=== PATIENT | female | born 1945 | race Hispanic/Latino ===

== ENCOUNTER 2023-08-26 07:34 | Inpatient (IN) | payer SELFPAY ==
[2023-08-26] MEDS ORDERED: NA CHLORIDE 0.9% 1,000 ML ONE ×2 (07:50→14:16)
[2023-08-26 08:10] LABS: Specific Gravity 1.007 (1.005-1.030); Sqamous Epithelial <5 /HPF (None Seen); Urine Bacteria 20-50 /HPF (<20); Urine Bilirubin NEGATIVE (Negative); Urine Blood 1+ (Negative); Urine Clarity Extremely Turbid (Clear); Urine Color Light-Yellow (Yellow); Urine Culture Reflex Order REFLEXED; Urine Glucose 4+ (Over) (Negative); Urine Ketones NEGATIVE (Negative); Urine Microscopic Reflex YN ORDER UMIC; Urine Nitrite NEGATIVE (Negative); Urine Protein TRACE (Negative); Urine Urobilinogen Normal (Normal); Urine WBC >50 /HPF (<5); Urine WBC Clump Few /HPF (None Seen)
[2023-08-26 08:19] LABS: Absolute Eosinophils 0.1 K/uL (0-0.5); Absolute Lymphocytes (CBC) 1.4 K/uL (0.7-4.9); Absolute Monocytes 1.2 K/uL (0.1-1.3); Absolute Neutrophil 12.5 K/uL (1.8-8.0); Basophils % 0.2 % (0-1.3); Eosinophils % 0.9 % (0-4.4); Hematocrit 31.9 % (36.0-45.0); Hemoglobin 10.4 g/dL (12.0-15.0); Lymphocytes % 8.9 % (15.3-44.8); MCH 29.6 pg (27.0-35.0); MCHC 32.5 g/dL (32.0-36.0); MCV 91.2 fL (80-100); MPV 9.6 fL (7.6-11.3); Monocytes % 7.6 % (3.3-12.3); Neutrophils % 82.4 % (41.7-73.7); Platelets 321 thou/uL (152-406)
[2023-08-26 08:35] LABS: Anion Gap 5.3 mEq/L (5.0-15.0); BUN Blood Urea Nitrogen 13 mg/dL (7-18); Bicarbonate 30 mEq/L (21-32); Glomerular Filtration Rate 59 ml/min (=/>90); Glucose Level 377 mg/dL (74-106); Potassium 4.3 mEq/L (3.5-5.1); Sodium Level 130 mEq/L (136-145)
[2023-08-26 08:36] LABS: Troponin High Sensitivity < 3.0 pg/mL (<58.9)
--- NOTE | 2023-08-26 08:46 | RAD REPORT ---
EXAM DESCRIPTION: CT - Head Brain Wo Cont - 08/26/2023 8:09 am CLINICAL HISTORY: Dizziness COMPARISON: none TECHNIQUE: Computed axial tomography of the head was obtained. IV contrast was not requested. All CT scans are performed using dose optimization technique as appropriate and may include automated exposure control or mA/KV adjustment according to patient size. FINDINGS: An intracranial bleed is not seen The ventricles are normal in caliber No significant hypodense areas within the brain visualized No extra-axial fluid collection is noted. Fluid within the sinuses/ mastoids is not seen IMPRESSION: No acute intracranial abnormality is seen If patient's symptoms persist MRI of the brain would be recommended
--- NOTE | 2023-08-26 08:51 | RAD REPORT ---
EXAM DESCRIPTION: RAD - Shoulder Left 2 View - 08/26/2023 8:23 am CLINICAL HISTORY: Left shoulder pain status post fall FINDINGS: No fracture or dislocation is seen. Marked osteoarthritis AC joint. Osteoporosis
[2023-08-26] MEDS ORDERED: INSULIN REGULAR (HUMAN) 100 UNIT/ML ONE (08:57)
[2023-08-26] MEDS ORDERED: CEFTRIAXONE 1000 MG/VIAL ONE (08:57)
--- NOTE | 2023-08-26 09:00 | RAD REPORT ---
EXAM DESCRIPTION: CT - Abdomen Pelvis W Contrast - 08/26/2023 8:15 am CLINICAL HISTORY: Abdominal pain COMPARISON: none. TECHNIQUE: Computed axial tomography of the abdomen pelvis was obtained. 100 cc Isovue-300 was admin istered intravenously. Oral contrast was not requested which limits evaluation of bowel and appendix All CT scans are performed using dose optimization technique as appropriate and may include automated exposure control or mA/KV adjustment according to patient size. FINDINGS: The liver, spleen, pancreas, adrenal and left kidney appear unremarkable. Small right arias l cyst. There is no evidence of diverticulitis. An abnormal appendix is not seen. No adnexal mass. Bladder wall thickening IMPRESSION: Bladder wall thickening may indicate cystitis
--- NOTE | 2023-08-26 09:01 | RAD REPORT ---
EXAM DESCRIPTION: Arturo Single View08/26/2023 8:22 am CLINICAL HISTORY: Chest pain COMPARISON: none FINDINGS: The lungs appear clear of acute infiltrate. The heart is mildly enlarged IMPRESSION: No acute abnormalities displayed
--- NOTE | 2023-08-26 09:10 | ER ---
Nurse's Notes [facility] Name: Gloria Machuca Age: 77 yrs Sex: Female : 1945 Arrival Date: 08/26/2023 Time: 07:34 Bed 17 Private MD: Diagnosis: UTI/ Urinary tract infection, site not specified;Hyperglycemia, unspecified;Muscle weakness (generalized) Presentation: 08/25 07:39 Chief complaint: Patient states: feeling weak and dizzy since yesterday , thinks her iw sugar is high, takes metformin , feels nausea and has a headache, son states she fell two weeks ago. Coronavirus screen: At this time, the client does not indicate any symptoms associated with coronavirus-19. Ebola Screen: Patient negative for fever greater than or equal to 101.5 degrees Fahrenheit, and additional compatible Ebola Virus Disease symptoms Patient denies exposure to infectious person. Patient denies travel to an Ebola-affected area in the 21 days before illness onset. No symptoms or risks identified at this time. 07:39 Method Of Arrival: Wheelchair iw 07:39 Acuity: DON 3 iw 07:40 Initial Sepsis Screen: Does the patient meet any 2 criteria? No. Patient's initial rs5 sepsis screen is negative. Does the patient have a suspected source of infection? No. Patient's initial sepsis screen is negative. Risk Assessment: Do you want to hurt yourself or someone else? Patient reports no desire to harm self or others. Onset of symptoms was August 26, 2023. Historical: - Allergies: 07:42 No Known Allergies; iw - PMHx: 07:42 Hypercholesterolemia; Diabetes mellitus; iw - PSHx: 07:42 tubal ligation; iw - Immunization history:: Adult Immunizations up to date. - Infectious Disease History:: Denies. - Social history:: Smoking status: Patient denies any tobacco usage or history of. - Family history:: not pertinent. - Hospitalizations: : No recent hospitalization is reported. Screenin:46 [facility] ED Fall Risk Assessment (Adult) History of falling in the last 3 months, rs5 including since admission No falls in past 3 months (0 pts) Confusion or Disorientation No (0 pts) Intoxicated or Sedated No (0 pts) Impaired Gait No (0 pts) Mobility Assist Device Used No (0 pt) Altered Elimination No (0 pt) Score/Fall Risk Level 0 - 2 = Low Risk Oriented to surroundings, Maintained a safe environment. Abuse screen: Denies threats or abuse. Nutritional screening: No deficits noted. Tuberculosis screening: No symptoms or risk factors identified. Assessment: 07:46 General: Appears in no apparent distress. uncomfortable, Behavior is calm, cooperative. rs5 Pain: Denies pain. Neuro: Level of Consciousness is awake, alert, obeys commands, Oriented to person, place, time, situation, Reports dizziness. Cardiovascular: Patient's skin is warm and dry. Rhythm is regular. Respiratory: Airway is patent Respiratory effort is even, unlabored, Respiratory pattern is regular, symmetrical. GI: Abdomen is flat, non-distended, Abd is soft and non tender X 4 quads. : No signs and/or symptoms were reported regarding the genitourinary system. EENT: No signs and/or symptoms were reported regarding the EENT system. Derm: Skin is intact, Skin is dry, Skin is normal, Skin temperature is warm. Musculoskeletal: Range of motion: intact in all extremities. 09:01 Reassessment: Patient and/or family updated on plan of care and expected duration. Pain rs5 level reassessed. Patient is alert, oriented x 3, equal unlabored respirations, skin warm/dry/pink. Patient denies pain at this time. Patient states feeling better. Patient states symptoms have improved. Neuro: Denies dizziness. 10:15 Reassessment: No changes from previously documented assessment. rs5 11:35 Reassessment: Patient and/or family updated on plan of care and expected duration. Pain rs5 level reassessed. Patient is alert, oriented x 3, equal unlabored respirations, skin warm/dry/pink. Vital Signs: 07:39 BP 153 / 65; Pulse 72; Resp 16; Temp 97.6; Pulse Ox 97% on R/A; iw 11:15 BP 150 / 67; Pulse 77; Resp 18; Temp 97.7(O); Pulse Ox 99% on R/A; rs5 ED Course: 07:36 Patient arrived in ED. rg4 07:37 Prince Rushing MD is Attending Physician. rn 07:42 Triage completed. iw 07:46 Patient has correct armband on for positive identification. Placed in gown. Bed in low rs5 position. Call light in reach. Side rails up X2. 07:46 No provider procedures requiring assistance completed. rs5 07:48 Karlos Anna, RN is Primary Nurse. rs5 07:50 Inserted saline lock: 22 gauge in right antecubital area, using aseptic technique. rs5 Blood collected. 08:11 CT Head Brain wo Cont In Process Unspecified. EDMS 08:17 CT Abd/Pelvis - IV Contrast Only In Process Unspecified. EDMS 08:24 Chest Single View XRAY In Process Unspecified. EDMS 08:24 XRAY Shoulder LEFT 2 view In Process Unspecified. EDMS 09:09 Ashvin Mayorga MD is Hospitalizing Provider. rn 11:30 Patient admitted, IV remains in place. rs5 Administered Medications: 08:00 Drug: NS 0.9% IV 1000 ml IV at 1000 ml once Route: IV; Rate: 1000 ml; Site: right rs5 antecubital; 08:15 Follow up: Response: No adverse reaction rs5 09:00 Follow up: IV Status: Completed infusion rs5 08:55 Drug: Insulin Regular Human Sub-Q 5 units Sub-Q once {Co-Signature: bp (Ted Dong RN).} Route: Sub-Q; Site: left lower abdomen; 09:01 Follow up: Response: No adverse reaction rs5 09:00 Drug: Rocephin IV 1 grams IV at calculated rate once; Given slow IV push per pharmacy rs5 instructions Route: IV; Rate: calculated rate; Site: left antecubital; 09:15 Follow up: Response: No adverse reaction rs5 Medication: 08:23 VIS not applicable for this client. rs5 Outcome: 09:09 Decision to Hospitalize by Provider. rn 11:30 Admitted to ER Hold. Please see [facility] for further documentation. rs5 11:30 Condition: stable 11:30 Instructed on the need for admit, Demonstrated understanding of instructions, 17:31 Patient left the ED. bd Signatures: Dispatcher [employer] EDMS Bertha Link Irene RN Prince Lovell MD MD rn Garcia, Rubi rg4 Karlos Anna RN RN rs5 Peltier, Brian RN bp Corrections: (The following items were deleted from the chart) 16:34 09:01 Response: No adverse reaction rs5 rs5
--- NOTE | 2023-08-26 09:10 | EDPHYS ---
Physician Documentation [facility] Name: Gloria Machuca Age: 77 yrs Sex: Female : 1945 Arrival Date: 08/26/2023 Time: 07:34 Bed 17 Private MD: ED Physician Prince Rushing HPI: 08/25 07:50 This 77 yrs old Female presents to ER via Wheelchair with complaints of High Blood rn Sugar. 07:50 The patient or guardian reports hyperglycemia. Onset: The symptoms/episode rn began/occurred 5 day(s) ago. Associated signs and symptoms: Pertinent positives: polydipsia, polyuria. Current symptoms: In the emergency department the patient's symptoms are unchanged from the initial presentation. The patient has experienced similar episodes in the past. The patient has been recently seen by a physician:. Family reports patient not feeling well since last week, took her to her PCP last and glucose was in the 400s. Since then has been urinating a lot, dizziness, lightheadedness and malaise. No fever. Fell due to lightheadedness last week injuring left shoulder and head. Has not obtained imaging for the fall. Denies chest pain. No shortness of breath.. Historical: - Allergies: 07:42 No Known Allergies; iw - PMHx: 07:42 Hypercholesterolemia; Diabetes mellitus; iw - PSHx: 07:42 tubal ligation; iw - Immunization history:: Adult Immunizations up to date. - Infectious Disease History:: Denies. - Social history:: Smoking status: Patient denies any tobacco usage or history of. - Family history:: not pertinent. - Hospitalizations: : No recent hospitalization is reported. ROS: 07:52 Constitutional: Negative for fever, chills, and weight loss, Eyes: Negative for injury, rn pain, redness, and discharge, Neck: Negative for injury, pain, and swelling, Cardiovascular: Negative for chest pain, palpitations, and edema, Respiratory: Negative for shortness of breath, cough, wheezing, and pleuritic chest pain, Abdomen/GI: Positive for abdominal cramping and nausea Back: Negative for injury and pain, MS/Extremity: Positive for left shoulder pain Skin: Negative for injury, rash, and discoloration, Neuro: Positive for mild headache and generalized weakness Exam: 07:52 Constitutional: This is a well developed, well nourished patient who is awake, alert, rn and in no acute distress. Head/Face: Normocephalic, healing ecchymosis right periorbital region Eyes: Pupils equal round and reactive to light, extra-ocular motions intact. Neck: No midline cervical tenderness Chest/axilla: Normal chest wall appearance and motion. Nontender with no deformity. No crepitus Cardiovascular: Regular rate and rhythm. No pulse deficits. Respiratory: No increased work of breathing, no retractions or nasal flaring. Abdomen/GI: Soft, non-tender Back: No spinal tenderness. MS/ Extremity: Mild painful range of motion left shoulder without gross deformity. Neuro: Awake and alert, GCS 15, oriented to person, place, time, and situation. Cranial nerves II-XII grossly intact. Motor strength 4/5 in all extremities. Sensory grossly intact. 10:27 ECG was reviewed by the Attending Physician. rn Vital Signs: 07:39 BP 153 / 65; Pulse 72; Resp 16; Temp 97.6; Pulse Ox 97% on R/A; iw 11:15 BP 150 / 67; Pulse 77; Resp 18; Temp 97.7(O); Pulse Ox 99% on R/A; rs5 MDM: 07:37 Patient medically screened. rn 09:08 Differential diagnosis: DKA, hyperglycemia, Urinary tract infection, dehydration, near rn syncope. Data reviewed: vital signs, nurses notes, lab test result(s), EKG, radiologic studies, CT scan, plain films, and as a result, I will admit patient. Consideration of Admission/Observation Patient was admitted/placed on observation. Escalation of care including admission/observation considered. Counseling: I had a detailed discussion with the patient and/or guardian regarding the historical points, exam findings, and any diagnostic results supporting the discharge/admit diagnosis, lab results, radiology results, the need for further work-up and treatment in the hospital. ED course: Patient with urinary tract infection, hyperglycemia, no acidosis or elevated anion gap. Blood cultures and lactate ordered. Will admit with IV antibiotics and further care.. 08/25 07:48 Order name: Basic Metabolic Panel; Complete Time: 08:36 rn 08/25 07:48 Order name: CBC with Diff rn 08/25 07:48 Order name: Troponin High Sensitivity; Complete Time: 08:36 rn 08/25 07:48 Order name: Urinalysis w/ reflexes; Complete Time: 08:36 rn 08/25 08:07 Order name: Glucose, Ancillary Testing; Complete Time: 08:36 EDMS 08/25 08:13 Order name: Urine Culture EDMS 08/25 08:33 Order name: CREATININE WHOLE BLOOD; Complete Time: 08:36 EDMS 08/25 08:36 Order name: Blood Culture Adult (2) rn 08/25 08:36 Order name: Lactate w/ 2H reflex if indic. rn 08/25 08:36 Order name: Protime (+inr) rn 08/25 08:36 Order name: Ptt, Activated rn 08/25 09:27 Order name: Manual Differential EDMS 08/25 12:28 Order name: Glucose, Ancillary Testing EDIN 08/25 12:52 Order name: Hemoglobin A1c EDIN 08/25 07:48 Order name: CT Head Brain wo Cont; Complete Time: 09:07 rn 08/25 07:48 Order name: Chest Single View XRAY; Complete Time: 09:07 rn 08/25 07:48 Order name: XRAY Shoulder LEFT 2 view; Complete Time: 09:07 rn 08/25 07:52 Order name: CT Abd/Pelvis - IV Contrast Only; Complete Time: 09:07 rn 08/25 07:48 Order name: EKG; Complete Time: 07:49 rn 08/25 07:48 Order name: Cardiac monitoring; Complete Time: 08:16 rn 08/25 07:48 Order name: EKG - Nurse/Tech; Complete Time: 08:35 rn 08/25 07:48 Order name: IV Saline Lock; Complete Time: 08:35 rn 08/25 07:48 Order name: Labs collected and sent; Complete Time: 08:35 rn 08/25 07:48 Order name: O2 Per Protocol; Complete Time: 08:35 rn 08/25 07:48 Order name: O2 Sat Monitoring; Complete Time: 08:35 rn 08/25 07:48 Order name: Glucose Level; Complete Time: 08:34 rn EC:27 Rate is 65 beats/min. Rhythm is regular. QRS [place] is Normal. [place] interval is normal. QRS rn interval is normal. QT interval is normal. No Q waves. T waves are Normal. No ST changes noted. Clinical impression: Normal ECG. Interpreted by me. Reviewed by me. Administered Medications: 08:00 Drug: NS 0.9% IV 1000 ml IV at 1000 ml once Route: IV; Rate: 1000 ml; Site: right rs5 antecubital; 08:15 Follow up: Response: No adverse reaction rs5 09:00 Follow up: IV Status: Completed infusion rs5 08:55 Drug: Insulin Regular Human Sub-Q 5 units Sub-Q once {Co-Signature: bp (Ted Dong rs5 RN).} Route: Sub-Q; Site: left lower abdomen; 09:01 Follow up: Response: No adverse reaction rs5 09:00 Drug: Rocephin IV 1 grams IV at calculated rate once; Given slow IV push per pharmacy rs5 instructions Route: IV; Rate: calculated rate; Site: left antecubital; 09:15 Follow up: Response: No adverse reaction rs5 Disposition Summary: 08/26/23 09:09 Hospitalization Ordered Notes: Hospitalization Status: Inpatient Admission rn Provider: Ashvin Mayorga rn Condition: Stable rn Problem: new rn Symptoms: have improved rn Bed/Room Type: Standard rn Location: Telemetry/MedSurg (Inpatient)(08/26/23 15:28) bd Room Assignment: 222(08/26/23 15:28) bd Diagnosis - UTI/ Urinary tract infection, site not specified rn - Hyperglycemia, unspecified rn - Muscle weakness (generalized) rn Forms: - Medication Reconciliation Form rn - SBAR form rn - Leadership Thank You Letter rn Signatures: Dispatcher [employer] EDMS Bertha Link Irene, RN RN iw Nieto, Roman, MD MD rn Sotelo, Ricky, RN RN rs5 Ted Dong RN bp Corrections: (The following items were deleted from the chart) 07:49 07:49 Chest Single View+RAD.RAD.BRZ ordered. EDMS EDMS 07:52 07:52 Abdomen Pelvis W Con+CT.RAD.BRZ ordered. EDMS EDMS 08:37 08:37 BLOOD CULTURE*+BA.LAB.BRZ ordered. EDMS EDMS 08:37 08:37 LACTATE+C.LAB.BRZ ordered. EDMS EDMS 08:37 08:37 PROTIME (+INR)+COAG.LAB.BRZ ordered. EDMS EDMS 08:37 08:37 PTT, ACTIVATED+COAG.LAB.BRZ ordered. EDMS EDMS 08:24 CBC Smear Scan ordered. EDMS EDMS 09:09 Telemetry/MedSurg (Inpatient) rn bd 09: rn bd 15: 10: BR ER HOLD bd bd : 10:25 ERHOLD- bd bd
[2023-08-26 09:15] LABS: PT Prothrombin Time 11.7 SECONDS (9.5-12.5); PTT, Activated Partial Thromb 30.9 SECONDS (24.3-36.9); Protime INR 1.07
[2023-08-26 09:38] LABS: Atypical Lymphocytes 1 %; Differential Total Cells Count 100; Lymphocytes 10 % (15-42); Monocytes 2 % (0-10); Myelocytes 2 % (0-0); Segmented Neutrophils 85 % (40-80)
[2023-08-26 09:41] LABS: Blood Morphology Comment NOTED (NOT SEEN); Hypochromasia 2+; Platelet Estimate ADEQ
--- NOTE | 2023-08-26 10:33 | P.HP ---
Certification for Inpatient Patient admitted to: Observation With expected LOS: <2 Midnights Practitioner: I am a practitioner with admitting privileges, knowledge of patient current condition, hospital course, and medical plan of care. Services: Services provided to patient in accordance with Admission requirements found in Title 42 Section 412.3 of the Code of Federal Regulations Patient History Date of Service: 08/26/23 Reason for admission: Hyperglycemia, dysuria History of Present Illness: Patient is a 77-year-old female with a past medical history of hypertension, di abetes mellitus type 2, hyperlipidemia who presented to the ED with complaints of hyperglycemia, generalized weakness x 1 week. Patient reports blood sugars have been dysregulated lately and went to see her doctor during which her blood glucose was in the 400s. The past 2 days she reports urinary frequency and incontinence. ED labs significant for hyperglycemia, leukocytosis, hyponatremia. No acidosis; negative ketones in urine; urinalysis suggestive of UTI. Lactic acid negative. CT abdomen pelvis showing bladder wall thickening may indicate cystitis. She was given a dose of Rocephin in the ED, 1 L of fluid, insulin. Blood and urine cultures obtained. Also noted ~ 2 weeks ago, the patient sustained a fall at home, right-sided facial bruising noted, no prior imaging done. CT head obtained in ED , no acute intracranial abnormality is seen. Plan to admit for hyperglycemia, acute cystitis, hyponatremia. Allergies No Known Allergies Allergy (Unverified 08/26/23 10:23) Home Medications: Enalapril [Vasotec] 10 mg PO DAILY 08/26/23 Metformin ER [Glucophage ER] 500 mg PO DAILY 08/26/23 - Past Medical/Surgical History Diabetic: Yes -: Diabetes mellitus type II -: hypertension -: hyperlipidemia - Social History Smoking Status: Never smoker Alcohol use: No CD- Drugs: No Caffeine use: No Place of Residence: Home Review of Systems 10-point ROS is otherwise unremarkable General: Weakness Genitourinary: Frequency, Incontinence Integumentary: Bruising (right facial/periorbital) Physical Examination - Physical Exam General: Alert, In no apparent distress, Oriented x3 HEENT: Other (brusing right facial/periorbital) Respiratory: Clear to auscultation bilaterally, Normal air movement, Other (ulabored respirations on room air) Cardiovascular: No edema, Regular rate/rhythm Gastrointestinal: Normal bowel sounds, Soft and benign, No tenderness Integumentary: No rashes Neurological: Normal speech, Normal tone, Normal affect - Studies Laboratory Data (last 24 hrs) 08/26/23 08/26/23 08/26/23 08:50 08:11 08:11 WBC 15.20 H Hgb 10.4 L Hct 31.9 L Plt Count 321 PT 11.7 INR 1.07 APTT 30.9 Sodium 130 L Potassium 4.3 BUN 13 Creatinine 1.00 Glucose 377 H Assessment and Plan - Plan Problem list Diabetes mellitus type 2 with hyperglycemia Acute cystitis Hyponatremia Hypertension Hyperlipidemia Acute cystitis - CT abdomen pelvis 08/25: Bladder wall thickening may indicate cystitis -Urinalysis is suggestive of UTI [ LE 500, RBC 11-20, WBC > 50, bacteria 20-50, glucose 4+; negative ketones] -Leukocytosis WBC 15.2. Afebrile. -Urine culture pending, follow-up with results -Blood cultures pending, follow-up with results -Started on empiric Rocephin IV Diabetes mellitus type 2 with hyperglycemia -Accu-Cheks ACHS. -Aggressive sliding scale insulin -Diabetic diet - hemoglobin A1c pending Hypertension hyperlipidemia -Continue home medications once verified Mechanical fall -Reported mechanical fall at home approximately 2 weeks ago. No imaging post- fall was performed following incident. - CT head and shoulder obtained in the ED. - CT head 08/25: No acute intracranial abnormality is seen - XR shoulder 08/25: No fracture or dislocation is seen. Marked osteoarthritis AC joint. Osteoporosis - XR chest 08/25: No acute abnormalities displayed -Fall precautions -As needed analgesics Full code Dispo: home in 24 to 48 hours - Advance Directives Does patient have a Living Will: No Does patient have a Durable POA for Healthcare: No Time Spent Managing Pts Care (In Minutes): 55
[2023-08-26] MEDS: NA CHLORIDE 0.9% 1,000 ML IV SCH (11:00)
[2023-08-26] MEDS ORDERED: INSULIN REGULAR (HUMAN) 100 UNIT/ML SQ SCH (11:30)
[2023-08-26] MEDS: INSULIN REGULAR (HUMAN) 100 UNIT/ML SQ SCH (11:30)
[2023-08-26] MEDS: ENALAPRIL 10 MG TAB PO SCH (21:26)
[2023-08-26] MEDS: ACETAMINOPHEN 325 MG TABLET PO PRN (21:26)
[2023-08-26] MEDS: HYDRALAZINE HCL 20 MG/ML VIAL IV PRN (21:27)
[2023-08-27] MEDS: CEFTRIAXONE 1,000 MG in NA CHLORIDE 0.9% 50 ML IVPB SCH (08:17)
[2023-08-27 08:32] LABS: Absolute Basophils 0.1 K/uL (0-0.5); Absolute Eosinophils 0.1 K/uL (0-0.5); Absolute Lymphocytes (CBC) 1.3 K/uL (0.7-4.9); Absolute Neutrophil 13.5 K/uL (1.8-8.0); Basophils % 0.4 % (0-1.3); Eosinophils % 0.9 % (0-4.4); Hematocrit 29.7 % (36.0-45.0); Lymphocytes % 8.2 % (15.3-44.8); MCH 30.9 pg (27.0-35.0); MCHC 33.7 g/dL (32.0-36.0); MCV 91.6 fL (80-100); MPV 10.2 fL (7.6-11.3); Monocytes % 6.3 % (3.3-12.3); Neutrophils % 84.2 % (41.7-73.7); Platelets 329 thou/uL (152-406); RBC Red Blood Cell Count 3.24 M/uL (3.86-4.86); Red Cell Distribution Width 14.1 % (12.1-15.2)
--- NOTE | 2023-08-27 08:38 | P.PN ---
Date of Service: 08/27/23 Subjective: Improving. In no apparent distress. She denies any new or worsening complaints at this time. She reports feeling much better than yesterday. ROS: 10 point ROS reviewed and negative except as listed above Physical Examination Temp Pulse Resp BP Pulse Ox 97.6 F 73 17 185/78 H 96 08/27/23 04:00 08/27/23 08:17 08/27/23 04:00 08/27/23 08:17 08/27/23 04:00 General: Alert, In no apparent distress, Oriented x3 HEENT: brusing right facial/periorbital. Head normocephalic. Respiratory: Clear to auscultation bilaterally, Normal air movement, on room air. Cardiovascular: No edema, Regular rate/rhythm. Gastrointestinal: Normal bowel sounds, Soft and benign, No tenderness Integumentary: No rashes. R Facial/periorbital bruising Neurological: Normal speech, Normal tone, Normal affect Assessment and Plan Problem list Gram-negative bacteremia secondary to urinary tract infection Diabetes mellitus type II, uncontrolled Acute cystitis Hyponatremia Hypertension Hyperlipidemia Gram Negative Bacteremia secondary to urinary tract infection Acute cystitis - CT abdomen pelvis 08/25: Bladder wall thickening may indicate cystitis -Urinalysis is suggestive of UTI [ LE 500, RBC 11-20, WBC > 50, bacteria 20-50, glucose 4+; negative ketones] -Leukocytosis -Urine culture 08/25: 4+ gram negative rods -Blood cultures: gram negative rods in 07/30 bottles -Started on empiric Rocephin IV -Will follow-up with culture results and adjust antibiotics as appropriate Diabetes mellitus type 2, uncontrolled -Accu-Cheks ACHS. -Aggressive sliding scale insulin -Diabetic diet - hemoglobin A1c = 12.2 Hypertension hyperlipidemia -Continue home med - prn hydralazine Mechanical fall -Reported mechanical fall at home approximately 2 weeks ago. No imaging post- fall was performed following incident. - CT head and shoulder obtained in the ED. - CT head 08/25: No acute intracranial abnormality is seen - XR shoulder 08/25: No fracture or dislocation is seen. Marked osteoarthritis AC joint. Osteoporosis - XR chest 08/25: No acute abnormalities displayed -Fall precautions -As needed analgesics Patient is ambulatory independently Full code Dispo: >2 days 48 hours
[2023-08-27 08:41] LABS: Anion Gap 4.8 mEq/L (5.0-15.0); Potassium 3.8 mEq/L (3.5-5.1)
[2023-08-27] MEDS: CEFTRIAXONE 1,000 MG in NA CHLORIDE 0.9% 50 ML IVPB ONE (09:44)
--- NOTE | 2023-08-27 13:11 | EKG ---
Test Date: 2023-08-26 Test Time: 08:30:46 It Sales Consultant: ANGIE MEASUREMENT RESULTS: Intervals: Rate: 65 MD: 154 QRSD: 86 QT: 398 QTc: 413 [place]: P: 50 MD: 154 QRS: 7 T: 38 INTERPRETIVE STATEMENTS: Normal sinus rhythm Normal ECG No previous ECG available for comparison Electronically Signed On 08-27-23 13:06:34 CDT by Jairo Noel
[2023-08-27 14:40] VITALS: BMI 27.4
[2023-08-27] MEDS: MAGNES/ALUMIN/SIMET 30ML UCUP PO PRN (17:34)
[2023-08-28 03:45] VITALS: O2SAT 95
[2023-08-28 04:39] LABS: Absolute Basophils 0.1 K/uL (0-0.5); Absolute Eosinophils 0.1 K/uL (0-0.5); Absolute Lymphocytes (CBC) 1.2 K/uL (0.7-4.9); Absolute Monocytes 0.7 K/uL (0.1-1.3); Absolute Neutrophil 10.8 K/uL (1.8-8.0); Basophils % 0.5 % (0-1.3); Eosinophils % 0.9 % (0-4.4); Hematocrit 31.2 % (36.0-45.0); Hemoglobin 9.9 g/dL (12.0-15.0); Lymphocytes % 9.2 % (15.3-44.8); MCH 29.1 pg (27.0-35.0); MCHC 31.8 g/dL (32.0-36.0); MCV 91.4 fL (80-100); MPV 9.7 fL (7.6-11.3); Monocytes % 5.4 % (3.3-12.3); Platelets 392 thou/uL (152-406); RBC Red Blood Cell Count 3.41 M/uL (3.86-4.86)
--- NOTE | 2023-08-28 08:25 | P.DS ---
Admission Date: 08/27/23 Discharge Date: 08/28/23 Disposition: ROUTINE DISCHARGE Discharge Condition: GOOD Reason for Admission: Hyperglycemia, dysuria Brief History of Present Illness: Patient is a 77-year-old female with a past medical history of hypertension, diabetes mellitus type 2, hyperlipidemia who presented to the ED with complaints of hyperglycemia, generalized weakness x 1 week. Patient reports blood sugars have been dysregulated lately and went to see her doctor during which her blood glucose was in the 400s. The past 2 days she reports urinary frequency and incontinence. ED labs significant for hyperglycemia, leukocytosis, hyponatremia. No acidosis; negative ketones in urine; urinalysis suggestive of UTI. Lactic acid negative. CT abdomen pelvis showing bladder wall thickening may indicate cystitis. She was given a dose of Rocephin in the ED, 1 L of fluid, insulin. Blood and urine cultures obtained. Also noted ~ 2 weeks ago, the patient sustained a fall at home, right-sided facial bruising noted, no prior imaging done. CT head obtained in ED , no acute intracranial abnormality is seen. Admitted for hyperglycemia, acute cystitis, hyponatremia. Hospital Course: Problem list Bacteremia secondary to urinary tract infection, E.coli Diabetes mellitus type II, uncontrolled Acute cystitis Hyperlipidemia Hypertension Hyponatremia Presented with hyperglycemia and generalized weakness. Found to have Escherichia coli bacteremia secondary to urinary tract infection. She was started on Rocephin IV which was de-escalated to levofloxacin following culture results. Plan to continue levofloxacin for 10 days for the treatment of gram- negative bacteremia. Leukocytosis improving., Afebrile. Patient reports significant improvement, ambulates independently, tolerating diet. Patient and family educated on importance of blood sugar management and completing course of antibiotics for bloodstream infection. Medications: Continue taking your home medications as previously prescribed. New Prescription: Levofloxacin 500 mg p.o. daily for 10 days Follow-ups -Please follow-up with a primary care physician within 1 week. Physical Exam General: Alert, In no apparent distress, Oriented x3 HEENT: brusing right facial/periorbital. Head normocephalic. Respiratory: Clear to auscultation bilaterally, Normal air movement, on room air. Cardiovascular: No edema, Regular rate/rhythm. Gastrointestinal: Normal bowel sounds, Soft and benign, No tenderness Integumentary: No rashes. R Facial/periorbital bruising Neurological: Normal speech, Normal tone, Normal affect Vital Signs/Physical Exam: Temp Pulse Resp BP Pulse Ox 97.8 F 76 18 128/67 93 08/28/23 04:00 08/28/23 04:00 08/28/23 04:00 08/28/23 04:00 08/28/23 04:00 Laboratory Data at Discharge: WBC 12.80 thou/uL (4.3-10.9) H 08/28/23 04:08 Hgb 9.9 g/dL (12.0-15.0) L 08/28/23 04:08 Hct 31.2 % (36.0-45.0) L 08/28/23 04:08 Plt Count 392 thou/uL (152-406) 08/28/23 04:08 PT 11.7 SECONDS (9.5-12.5) 08/26/23 08:50 INR 1.07 08/26/23 08:50 APTT 30.9 SECONDS (24.3-36.9) 08/26/23 08:50 Sodium 134 mEq/L (136-145) L D 08/27/23 06:43 Potassium 3.8 mEq/L (3.5-5.1) 08/27/23 06:43 BUN 8 mg/dL (7-18) 08/27/23 06:43 Creatinine 0.76 mg/dL (0.55-1.02) 08/27/23 06:43 Glucose 167 mg/dL (74-106) H 08/27/23 06:43 Total Bilirubin Cancelled 08/26/23 Unknown AST Cancelled 08/26/23 Unknown ALT Cancelled 08/26/23 Unknown Alkaline Phosphatase Cancelled 08/26/23 Unknown Home Medications: Enalapril [Vasotec*] 10 mg PO DAILY 08/26/23 Metformin ER [Glucophage ER*] 500 mg PO DAILY 08/26/23 levoFLOXacin [Levofloxacin] 500 mg PO Q24H 10 Days #10 tab 08/28/23 New Medications: levoFLOXacin [Levofloxacin] 500 mg PO Q24H 10 Days #10 tab Physician Discharge Instructions: Presented with hyperglycemia and generalized weakness. Found to have Escherichia coli bacteremia secondary to urinary tract infection. She was started on Rocephin IV which was de-escalated to levofloxacin p.o following culture results. Plan to continue levofloxacin for 10 days for the treatment of gram-negative bacteremia. Patient reports significant improvement, ambulates i ndependently, tolerating diet. Patient and family educated on importance of blood sugar management and completing course of antibiotics for bloodstream infection. Prescriptions -Levofloxacin 500 mg p.o. daily for 10 days Follow-ups -Please follow-up with a primary care physician within 1 week. Diet: ADA Activity: Fall precautions Followup: NONE,NONE [Primary Care Provider] -
[2023-08-28 08:58] VITALS: BP 148/63; TEMP 97.6
[2023-08-28] MEDS ORDERED: CEFTRIAXONE 2,000 MG in NA CHLORIDE 0.9% 100 ML IV SCH (09:00)
== END 2023-08-28 09:20 | disposition home or self-care (01) | DRG 638 ==
LOC: ER 07:34 → ERHOLD 09:51 → 2ND 16:29 → OBSVTOIN 08-27 12:25
PROVIDERS: ADMIT Internal Medicine; ATTEND Internal Medicine
DX: E11.65 Type 2 diabetes mellitus with hyperglycemia (principal); E87.1 Hypo-osmolality and hyponatremia; N30.00 Acute cystitis without hematuria; R78.81 Bacteremia; I10 Essential (primary) hypertension; E78.00 Pure hypercholesterolemia, unspecified; M19.90 Unspecified osteoarthritis, unspecified site; B96.20 Unspecified Escherichia coli [E. coli] as the cause of diseases classified elsewhere; Z98.51 Tubal ligation status; Z79.84 Long term (current) use of oral hypoglycemic drugs; Z79.899 Other long term (current) drug therapy
CPT/HCPCS: 36415; 70450; 71045; 74177; 80048; 81001; 82565; 82947; 83036; 83605; 84484; 85025; 85610; 85730; 87040; 87077; 87086; 87088; 87186; 87205; 93005; 96361; 96372; 96374; 99285; G0378; J0360; J0696; J1815; J7030; Q9967